=== PATIENT | female | born 1990 | race African-American/Black ===

== ENCOUNTER 2023-02-05 03:42 | Emergency (ER) | payer OTHER ==
[2023-02-05] MEDS ORDERED: Albuterol 200 PUFF (6.7GM INHALER) ONE (05:19)
[2023-02-05] MEDS ORDERED: Dexamethasone 10 MG/ML VIAL ONE (05:19)
== END 2023-02-05 05:42 | disposition home or self-care (01) ==
LOC: ERS 03:42
DX: J11.1 Influenza due to unidentified influenza virus with other respiratory manifestations (principal); J20.9 Acute bronchitis, unspecified
CPT/HCPCS: 71045; J1100